=== PATIENT | female | born 2000 | race Hispanic/Latino ===

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

== ENCOUNTER 2022-02-18 01:14 | Day surgery (SDC) | payer OTHER, SELFPAY ==
[2022-02-09 16:12] VITALS: BMI 32.3
--- NOTE | 2022-02-17 09:20 | PM.HPGS ---
History of Present Illness History of Present Illness Consent: Risks, benefits, and alternatives have been discussed and questions answered. Patient agrees to proceed with procedure. Chief complaint: LUQP Narrative: Esperanza Andrew is a 21 year old female who was seen in our office a few months ago with complaint of LUQ pain for 3 months. Pain is worse underneath left rib cage but also has pain in mid chest area on the left side that radiates across left side of chest.? She reports symptoms are intermittent, may have it off and on for a week then will go away for a few weeks. It is a sharp stabbing burning pain. Pain is worse with breathing in and improves with exhaling. She had been seen in the emergency room when pain was severe. The pain is worse with inhaling. A trial of famotidine did not seem to be effective. Review of Systems Review of Systems: All systems reviewed & are unremarkable except as noted in HPI and below PMFSH Past Medical History Medical History (Updated 02/17/22 @ 09:21 by Rocky Mckinnon MD) Patient denies significant medical history Social History Social History (Updated 09/30/21 @ 10:10 by Mya Sheffield MA) Smoking status: Never smoker Second hand tobacco smoke exposure: No Alcohol intake: never Substance use: never Substance use type: does not use Living arrangements: with roommate(s) Additional living arrangements comments: lives in college dorm Gender identity (if verbalized by the patient): Female Spiritual care concerns: No Meds Home Medications and Allergies Home Medications Medication Instructions Recorded Confirmed Type No Home Medications 02/09/22 02/09/22 History Allergies Allergy/AdvReac Type Severity Reaction Status Date / Time Penicillins Allergy Swelling Verified 02/09/22 16:20 Exam Const: General: alert Orientation/consciousness: patient oriented x3 Resp: Auscultation: clear to auscultation bilaterally Cardio: Rhythm: regular rhythm GI: GI Palp: Yes Soft to palpation and No Tenderness to palpation present (GI) Neuro: General: patient oriented x3 Assessment and Plan Assessment and plan (1) Epigastric pain: Code(s): R10.13 - Epigastric pain Status: Acute Assessment and Plan: EGD with possible biopsy or dilatation or cautery.
--- NOTE | 2022-02-18 12:22 | SUR.PREOP ---
Patient drank 16oz bottle of [place] today prior to arrival to hospital for procedure. Patient stated she finished drinking at 1130. Spoke with Dr. Campos and with Dr. Mckinnon, both in agreement to cancel procedure today and reschedule.
[2022-02-18 12:28] VITALS: BP 115/76; PULSE 66; RESP 16; TEMP 36.6; O2SAT 100
== END 2022-02-18 12:31 | disposition home or self-care (01) ==
PROVIDERS: Visit Provider Internal Medicine Gastroenterology
PROC: 0DJ08ZZ Inspection of Upper Intestinal Tract, Via Natural or Artificial Opening Endoscopic (ICD-10-PCS; CPT 43235; principal; 2022-02-18 14:00)
DX: R10.12 Left upper quadrant pain (principal); Z53.09 Procedure and treatment not carried out because of other contraindication
CPT/HCPCS: 99199; 99212; G0463